=== PATIENT | male | born 1960 | race Caucasian/White ===

== ENCOUNTER 2017-10-22 17:21 | Emergency (ER) | payer OTHER ==
[~2017-10-22] VITALS: Ht 170.2 cm; Wt 76.0 kg
[~2017-10-22 17:21] MED LIST: CYCL-36 PO
[2017-10-22 17:37] VITALS: BP 143/67; PULSE 107; RESP 16; TEMP 99.1; O2SAT 95
--- NOTE | 2017-10-22 18:03 | PD ---
HPI Chief Complaint: Musculoskeletal Complaint Time Seen by Provider: 17:50 Travel History International Travel<30 days: No Contact w/Intl Traveler<30days: No Traveled to known affect area: No History of Present Illness HPI 57-year-old male presents emergency department with acute on chronic sciatica type symptoms for approximately 2 months. Patient actually denies low back pain but states that his bilateral lower extremities feel weak and he has been unable to perform ADLs today because of his symptoms. Patient says that bilateral lower extremities have had multiple muscle cramps and have actually resolved most of them while sitting in the emergency department today. He denies fever, chills, loss of bowel or bladder function, saddle anesthesia, trauma, history of IV drug use. Says he normally goes to the [facility] but has been unable to because he has been out of town. He has a history of herniated disks, COPD, and peripheral neuropathy. Says he was previously prescribed Flexeril however, says that this medication has not helped him anymore. PFSH Past Medical History Anxiety: Yes Depression: Yes Cancer: No Cardiovascular Problems: No COPD: Yes Diminished Hearing: No Endocrine: No Gastrointestinal Disorders: No Genitourinary: No Herniated Disk: Yes Immune Disorder: No Inguinal Hernia: Yes (REPAIRED) Implanted Vascular Access Dvce: No Musculoskeletal: Yes (CHRONIC BACK PAIN) Neurologic: No Immunizations Current: Yes Tetanus Vaccination: < 5 Years Influenza Vaccination: Yes Past Surgical History Abdominal Surgery: Yes (HERNIORRHAPHY) Oral Surgery: Yes (tonsilectomy) Tonsillectomy: Yes Social History Alcohol Use: Yes (12 PACK PER WEEK) Tobacco Use: Yes (1/2 PPD) Substance Use: No Allergies-Medications (Allergen,Severity, Reaction): Coded Allergies: erythromycin base (Unverified Allergy, Severe, HIVES, 10/22/17) Reported Meds & Prescriptions Reported Meds & Active Scripts Active Medrol Dosepak (Methylprednisolone) 4 Mg Dspk 4 Mg PO DIRECTED Per Pharmacist direction Review of Systems Except as stated in HPI: all other systems reviewed are Neg Physical Exam Narrative GENERAL: Well-developed, well-nourished in no apparent distress SKIN: Focused skin assessment warm/dry. HEAD: Atraumatic. Normocephalic. EYES: Pupils equal and round. No scleral icterus. No injection or drainage. ENT: No nasal bleeding or discharge. Mucous membranes pink and moist. NECK: Trachea midline. No JVD. CARDIOVASCULAR: Regular rate and rhythm. No murmur appreciated. RESPIRATORY: No accessory muscle use. Clear to auscultation. Breath sounds equal bilaterally. MUSCULOSKELETAL: No obvious deformities. No clubbing. No cyanosis. No edema. Grade 5/5 strength lower extremities, DTRs 3/5, neurovascularly intact. Homans sign negative. No obvious muscle spasms BACK: No CVA tenderness. No rash. No point tenderness on palpation of the spine. NEUROLOGICAL: Awake and alert. No obvious cranial nerve deficits. Motor grossly within normal limits. Normal speech. PSYCHIATRIC: Appropriate mood and affect; insight and judgment normal. Data Data Last Documented VS Vital Signs Date Time Temp Pulse Resp B/P (MAP) Pulse Ox O2 Delivery O2 Flow Rate FiO2 10/22/17 17:37 99.1 107 16 143/67 (92) 95 Orders Orders Dexamethasone Inj (Decadron Inj) (10/22/17 18:15) Ed Discharge Order (10/22/17 18:24) [facility] Medical Decision Making Medical Screen Exam Complete: Yes Emergency Medical Condition: Yes Differential Diagnosis Piriformis syndrome, sciatica, acute on chronic lumbago Narrative Course 57-year-old male with a history of sciatica presents emergency department for evaluation of bilateral lower extremity weakness has been present for approximate 2 months. States that her last several days this is worsened which is why he is here today for evaluation. No red flag symptoms today Vital signs stable. Physical exam findings consistent with a well-developed, well-nourished 57-year- old male. Bilateral lower extremities grade 5/5 strength, neurovascularly intact. Back nontender to palpation, no obvious muscle spasms. Dexamethasone 4 mg administered IM. Patient will be discharged with Medrol Dosepak. Advised follow with the [facility] for continued care. Advised to follow-up the emergency department for worsening or persistent symptoms. Diagnosis Primary Impression: Sciatica Qualified Codes: M54.31 - Sciatica, right side; M54.32 - Sciatica, left side Referrals: Primary Care Physician Additional Instructions: Take her medications as prescribed. [facility] Consider follow-up with an office support specialist for further evaluation of your back. If your symptoms persist or worsen return to the emergency department. Perform light stretches of the lower back and legs, and alternate heat and ice packs. If you develop increased pain, weakness, fever, chills, or bowel or bladder issues, return to the ED for further treatment and evaluation. Follow up with your primary care physician in 2-3 days. Scripts Methylprednisolone Dosepak (Medrol Dosepak) 4 Mg Dspk 4 MG PO DIRECTED, #1 DSPK 0 Refills Per Pharmacist direction Prov: DuaneAlysaKatie L DO 10/22/17 Disposition: 01 DISCHARGE HOME Condition: Stable Naomy Gutierrez Oct 22, 2017 18:03
[2017-10-22] MEDS ORDERED: DEXAMETHASONE SOD PHOS 4 MG/ML VIAL IM ONE (18:15)
[2017-10-22] MEDS ORDERED: MEDR4PAK PO (18:17)
== END 2017-10-22 18:41 | disposition home or self-care (01) ==
LOC: PHEFT 17:21
DX: M54.31 Sciatica, right side (principal); M54.32 Sciatica, left side; J44.9 Chronic obstructive pulmonary disease, unspecified; G62.9 Polyneuropathy, unspecified; F32.9 Major depressive disorder, single episode, unspecified; F41.9 Anxiety disorder, unspecified; F17.210 Nicotine dependence, cigarettes, uncomplicated; Z88.1 Allergy status to other antibiotic agents
CPT/HCPCS: 96372; 99283; J1100